=== PATIENT | female | born 1935 | race Caucasian/White ===

== ENCOUNTER 2023-04-21 15:26 | Outpatient (RCR) | payer OTHER, SELFPAY | END 2023-04-21 23:59 | disposition home or self-care (01) | LOC: RPT 15:26 | PROVIDERS: ATTENDING PHYSICIAN Nurse Practitioner; FAMILY PHYSICIAN Family Medicine | DX: N39.3 Stress incontinence (female) (male) (principal); N39.41 Urge incontinence; R26.2 Difficulty in walking, not elsewhere classified; M25.552 Pain in left hip; M54.50 Low back pain, unspecified | CPT/HCPCS: 97110; 97112; 97140; 97163; 97530 ==

== ENCOUNTER 2023-05-19 14:52 | Outpatient (RCR) | payer OTHER, SELFPAY | END 2023-05-19 23:59 | disposition home or self-care (01) | LOC: RPT 14:52 | PROVIDERS: ATTENDING PHYSICIAN Nurse Practitioner; FAMILY PHYSICIAN Family Medicine | DX: N39.41 Urge incontinence (principal); N39.3 Stress incontinence (female) (male); R26.2 Difficulty in walking, not elsewhere classified; M25.552 Pain in left hip; M54.50 Low back pain, unspecified; Z73.6 Limitation of activities due to disability | CPT/HCPCS: 97112; 97140; 97530 ==

== ENCOUNTER 2023-06-16 15:10 | Outpatient (RCR) | payer OTHER, SELFPAY | END 2023-06-16 23:59 | disposition home or self-care (01) | LOC: RPT 15:10 | PROVIDERS: ATTENDING PHYSICIAN Nurse Practitioner; FAMILY PHYSICIAN Family Medicine | DX: N39.46 Mixed incontinence (principal); R26.2 Difficulty in walking, not elsewhere classified; M25.552 Pain in left hip; M54.50 Low back pain, unspecified | CPT/HCPCS: 97014; 97112; 97140; 97530 ==

== ENCOUNTER 2023-07-21 14:57 | Outpatient (RCR) | payer OTHER, SELFPAY | END 2023-07-21 23:59 | disposition home or self-care (01) | LOC: RPT 14:57 | PROVIDERS: ATTENDING PHYSICIAN Nurse Practitioner; FAMILY PHYSICIAN Family Medicine | DX: N39.46 Mixed incontinence (principal); R26.2 Difficulty in walking, not elsewhere classified; M25.552 Pain in left hip; M54.50 Low back pain, unspecified; Z73.6 Limitation of activities due to disability | CPT/HCPCS: 97014; 97110; 97140; 97530 ==

== ENCOUNTER 2023-08-11 15:06 | Outpatient (RCR) | payer OTHER, SELFPAY | END 2023-08-19 08:28 | disposition home or self-care (01) | LOC: RPT 15:06 | PROVIDERS: ATTENDING PHYSICIAN Nurse Practitioner; FAMILY PHYSICIAN Family Medicine | DX: N39.46 Mixed incontinence (principal); R26.2 Difficulty in walking, not elsewhere classified; M25.552 Pain in left hip; M54.50 Low back pain, unspecified | CPT/HCPCS: 97110; 97112; 97140; 97530 ==

== ENCOUNTER → 2023-09-10 17:04 | Outpatient (REF) | payer OTHER, SELFPAY | LOC: HWRAD 17:04 | PROVIDERS: ATTENDING PHYSICIAN Family Medicine | DX: R05.3 Chronic cough (principal) | CPT/HCPCS: 71046 ==

== ENCOUNTER → 2023-10-02 14:52 | Outpatient (REF) | payer OTHER, SELFPAY | LOC: HWRAD 14:52 | PROVIDERS: ATTENDING PHYSICIAN Family Medicine | DX: E04.9 Nontoxic goiter, unspecified (principal) | CPT/HCPCS: 76536 ==

== ENCOUNTER → 2023-10-13 09:55 | Outpatient (REF) | payer OTHER, SELFPAY | LOC: RAD 09:55 | PROVIDERS: ATTENDING PHYSICIAN Family Medicine | DX: R13.10 Dysphagia, unspecified (principal) | CPT/HCPCS: 74230; 92611 ==

== ENCOUNTER 2023-11-28 06:11 | Day surgery (SDC) | payer OTHER, SELFPAY ==
[2023-11-28 08:12] VITALS: BMI 39.8
[2023-11-28 08:21] VITALS: BP 154/76
[2023-11-28 08:45] VITALS: BMI 39.8
[2023-11-28 09:48] VITALS: BP 130/69
[2023-11-28 10:00] VITALS: BP 129/65
[2023-11-28 10:15] VITALS: BP 143/66
== END 2023-11-28 10:35 | disposition home or self-care (01) ==
LOC: SDS 06:11
PROVIDERS: ATTENDING PHYSICIAN Internal Medicine
DX: K22.2 Esophageal obstruction (principal); K22.4 Dyskinesia of esophagus; K44.9 Diaphragmatic hernia without obstruction or gangrene; R13.10 Dysphagia, unspecified
CPT/HCPCS: 43249

== ENCOUNTER → 2024-04-19 15:58 | Outpatient (REF) | payer OTHER, SELFPAY | LOC: HWRCS 15:58 | PROVIDERS: ATTENDING PHYSICIAN Internal Medicine Cardiovascular Disease; FAMILY PHYSICIAN Family Medicine | DX: R06.00 Dyspnea, unspecified (principal) | CPT/HCPCS: 93306 ==

== ENCOUNTER → 2024-04-21 08:13 | Outpatient (REF) | payer OTHER, SELFPAY | LOC: HWRCS 08:13 | PROVIDERS: ATTENDING PHYSICIAN Internal Medicine Cardiovascular Disease; FAMILY PHYSICIAN Family Medicine | DX: R06.00 Dyspnea, unspecified (principal) | CPT/HCPCS: 78452; 93017; A9500; J2785 ==

== ENCOUNTER 2024-05-03 08:29 | Day surgery (SDC) | payer OTHER, SELFPAY ==
[2024-04-14 14:30] VITALS: BMI 36.0
[2024-04-14 15:05] LABS: Hematocrit 40.2 % (37.0-47.0); Mean Corp Hgb Conc. 32.3 g/dL (33.0-37.0); Mean Corpuscular Hgb 30.3 pg (27.0-31.0); Mean Corpuscular Volume 93.7 fL (81.0-99.0); Mean Platelet Volume 11.1 fL (7.4-10.4); Platelet Count 243 10^3/uL (130-400); Red Blood Cell Count 4.29 10^6/uL (4.20-5.40); Red Cell Dist. Width 13.4 % (11.5-14.5); White Blood Cell Count 10.8 10^3/uL (4.8-10.8)
[2024-04-14 15:38] LABS: ALT (SGPT) 21 U/L (0-35); AST (SGOT) 24 U/L (14-36); Albumin 4.1 g/dl (3.5-5.0); Alkaline Phosphatase 111 U/L (38-126); Blood Urea Nitrogen 27 mg/dl (7-17); Calcium 10.5 mg/dl (8.4-10.2); Carbon Dioxide 26 mmol/L (22-30); Chloride 101 mmol/L (98-107); Estimated Creatinine Clearance 35 ml/min; Glucose 86 mg/dl (70-99); Potassium 4.5 mmol/L (3.5-5.1); Sodium 138 mmol/L (135-145); Total Bilirubin 0.4 mg/dl (0.2-1.3); eGFR 43.54
[2024-04-15 08:32] LABS: Glycohemoglobin (HgbA1c) 6.1 % (4.0-5.6)
[2024-04-22 13:33] VITALS: BMI 36.0
--- NOTE | 2024-04-26 13:29 | VNURNOTE ---
Patient is scheduled for an elective L TOBY on 05/03/24. Spoke with patient prior to surgery. Introduced role of [facility] liaison.
PCP is Dr. WILSON.
Discussed orthopedic program and post surgical plans.
Reviewed that she will have VN services initially and will then start outpatient PT at [facility] 05/05/24.
Patient is in agreement with plan and states that her daughter will drive her home at discharge.
Plan: [facility] to see patient when she returns home. Referral placed in [facility].
--- NOTE | 2024-04-29 10:27 | VNURNOTE ---
[facility] liaison rec'ed update. Patient to stay overnight and then start outpt PT on 05/05. No [facility] need. [facility] Liaison called patient, reviewed plan. She is in agreement and verbalized understanding. Her daughter will stay with her at home x 1 week.
[2024-05-03] VITALS (15 sets, daily range): BP systolic 116–166; BP diastolic 55–102; PULSE 80; O2SAT 96
[2024-05-03] MEDS: TYLENOL 650 MG PO ×3 (08:58→19:44)
[2024-05-03] MEDS: CELEBREX 200 MG PO (08:58)
[2024-05-03] MEDS: NORMOSOL-R/PLASMALYTE-A 1000 IV (08:59)
[2024-05-03] MEDS: SUBLIMAZE 50 MCG IV (13:21)
[2024-05-03] MEDS: NSS 1000 IV (14:07)
[2024-05-03] MEDS: TYLENOL PO (14:25)
--- NOTE | 2024-05-03 14:25 | PTCARENOTE ---
Telephone report received from SALESPERSON RECREATIONAL VEHICLESMICHELLE Sy; @14:25 patient arrived in bed on 2L O2; VSS; admission history obtained at bedside.
--- NOTE | 2024-05-03 15:00 | W.PN.UPDATE ---
Update Note
Progress Note Update
L hip OA s/p L TOBY w/ Dr Malone 05/03/23
DVT prophylaxis - ASA, b/l venous foot pumps
HTN - + parameters - monitor BP
CKD stage 3 - minimize nephrotoxins
GERD - continue PPI
DDD, lumbar radiculopathy - add Gabapentin HS
Ambulatory dysfunction with balance and gait disturbance - on fall precautions
Mild valvular disease
UTI with urosepsis secondary to ureteral calculi 05/2022
Prediabetes, A1c 6.1
Obesity, BMI 36.0
[2024-05-03] MEDS: LASIX 40 MG PO (15:42)
[2024-05-03] MEDS: ALDACTONE 25 MG PO (15:44)
[2024-05-03] MEDS: PROTONIX 20 MG PO (15:44)
[2024-05-03] MEDS: FLORASTOR 250 MG PO (15:49)
[2024-05-03] MEDS: REFRESH EYE DROPS (PF) 1 DROPS BOTH EYES ×2 (17:47→21:33)
[2024-05-03] MEDS: ASPIRIN 325 MG PO (17:47)
[2024-05-03] MEDS: ANCEF 5 IV (17:47)
[2024-05-03] MEDS: SENOKOT PO (19:44)
[2024-05-03] MEDS: BACTROBAN 2% OINTMENT 1 APPLIC NASAL (19:44)
[2024-05-03] MEDS: COLACE PO (19:44)
[2024-05-03] MEDS: COREG 6.25 MG PO (19:45)
[2024-05-03] MEDS: DECADRON 4 MG PO (19:45)
[2024-05-03] MEDS: NEURONTIN 300 MG PO (21:32)
[2024-05-03] MEDS: MAG-TAB SR 84 MG PO (21:32)
[2024-05-03] MEDS: MELATONIN 3 MG PO (21:33)
[2024-05-04] MEDS: TYLENOL PO ×2 (00:51→05:00)
[2024-05-04] MEDS: ANCEF 5 IV (02:10)
[2024-05-04 03:00] VITALS: BP 130/64
[2024-05-04 07:35] VITALS: BP 129/66
[2024-05-04] MEDS: BACTROBAN 2% OINTMENT 1 APPLIC NASAL (08:01)
[2024-05-04] MEDS: TYLENOL 650 MG PO (08:09)
[2024-05-04] MEDS: COLACE 100 MG PO (08:09)
[2024-05-04] MEDS: SENOKOT 17.2 MG PO (08:09)
[2024-05-04] MEDS: ALDACTONE PO (08:09)
[2024-05-04] MEDS: DECADRON 4 MG PO (08:10)
[2024-05-04] MEDS: LASIX PO (08:10)
[2024-05-04] MEDS: ASPIRIN 325 MG PO (08:10)
[2024-05-04] MEDS: PROTONIX 20 MG PO (08:10)
[2024-05-04] MEDS: FLORASTOR 250 MG PO (08:10)
[2024-05-04] MEDS: REFRESH EYE DROPS (PF) 1 DROPS BOTH EYES (08:10)
[2024-05-04] MEDS: COREG 6.25 MG PO (08:10)
[2024-05-04] MEDS: ULTRAM 50 MG PO (08:13)
--- NOTE | 2024-05-04 09:13 | W.PN.ORTHO ---
Today's Communication / Plan
-
Await PT and OT recs.
D/c later today if remaining clinically stable.
Assessment
.
Distal Motor Intact: Yes
Dressing:
Scant old incisional drainage. Dressing otherwise C/D/I.
Assessment:
L hip OA s/p Rafia LUIS w/ Dr Malone 05/03/24
DVT prophylaxis - ASA, b/l venous foot pumps
HTN - + parameters - BP stable
CKD stage 3 - minimize nephrotoxins
GERD - continue PPI
DDD, lumbar radiculopathy - added Gabapentin HS
Ambulatory dysfunction with balance and gait disturbance - on fall precautions
Mild valvular disease
UTI with urosepsis secondary to ureteral calculi 05/2022
Prediabetes, A1c 6.1
Obesity, BMI 36.0
Plan
.
Surgery / Date: Rafia LUIS w/ Dr Malone 05/03/23
DVT Prophylaxis: Aspirin
Activity:
Out of bed.
PT/OT
Discharge Plan: Home w/ Outpatient PT
Subjective
.
.:
Patient resting comfortably in bed.
L hip pain fairly well controlled w/ current pain meds.
Denies any new significant complaints.
Eager for potential d/c today.
Vital Signs and Labs
.
Vital Signs and Labs:
Lab Results
04/14/24 13:16
04/14/24 13:16
Temp Pulse Resp BP Pulse Ox
97.9 F 78 18 129/66 95
05/04/24 07:35 05/04/24 08:10 05/04/24 07:35 05/04/24 08:10 05/04/24 08:00
Non-invasive Hgb result: 13.2
Physical Exam
-
HEENT: No pallor, cyanosis, or jaundice. Throat clear.
NECK: Supple. No JVD.
RESPIRATORY: Lungs clear to auscultation.
CVS: S1, S2 normal. RRR.
ABDOMEN: Soft, non-tender. No distension. Obese.
EXTREMITIES: Strength equal, no calf pain with palpation/dorsiflexion. Calves soft.
FILE CLERK DATA ENTRY: AOx3. No focal deficits. air commodore grossly intact
--- NOTE | 2024-05-04 09:25 | W.DS.TRANS ---
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
-
Discharge Instructions:
Sleep Apnea Risk Intermediate
Discharge Diagnosis/Procedures L hip OA s/p L TOBY w/ Dr Malone 05/03/24
Diet Regular
Activity As tolerated,With Walker
Driving Restrictions Not until seen by your Dr
Bathing Restrictions OK to Shower
Other Services PT
Wound Care Dressing to be removed 1 week post-surgery.
Prabhu to be removed at 2 week follow-up with
surgeon's office.
Instructions:
Stand-Alone Forms: Total Hip/Knee Replacement D/C
Changes to Home Medications: Yes
Discharge Medications:
DC Medications w/original date entered in [facility]
dextran 70-hypromellose eye drops in a dropperette (Artificial Tears (PF) drops in a dropperette) 1 drp BOTH EYES QID Eye Condition 06/12/19
carvedilol 6.25 mg tablet 6.25 mg PO BID Blood pressure 04/22/22
estradiol 0.01% (0.1 mg/gram) vaginal cream 1 g vaginal TUSA Infection 04/22/22
magnesium 250 mg tablet 250 mg PO QPM Electrolyte Repletion 04/22/22
pantoprazole 20 mg tablet,delayed release 20 mg PO DAILY Gastrointestinal issue 04/22/22
therapeutic multivitamin 1 tab PO QPM Supplement 04/22/22
Nuvision 2 cap PO DAILY Supplement 08/02/22
Probiotic 1 cap PO DAILY Supplement 08/02/22
vibegron 75 mg tablet (Gemtesa) 75 mg PO DAILY Urinary Issue 08/02/22
cranberry extract 200 mg capsule (Ellura) 200 mg PO DAILY 04/12/24
dexamethasone 4 mg tablet 4 mg PO BID inflammation #6 tabs 04/14/24
gabapentin 300 mg capsule 300 mg PO HS sleep/pain #10 caps 04/14/24
mupirocin 2 % topical ointment 1 applic topical BID infection prevention #1 tube 04/14/24
tramadol 50 mg tablet 50 mg PO Q6H PRN 1 tab moderate pain, 2 if severe #30 tabs 01/22/25
melatonin 2.5 mg PO HS PRN sleep 05/03/24
acetaminophen 650 mg tablet,extended release 1,300 mg (2 x 650 mg) PO Q8H pain #60 tabs 05/04/24
aspirin 325 mg tablet 325 mg PO DAILY #30 tabs 05/04/24
docusate sodium 100 mg capsule 100 mg PO BID #30 caps 05/04/24
furosemide 40 mg tablet 40 mg PO DAILY Fluid retention/Swelling #1 tab 05/04/24
ondansetron HCl 4 mg tablet 4 mg PO Q6H PRN nausea and vomiting #30 tabs 05/04/24
polyethylene glycol 3350 17 gram oral powder packet 17 g PO HS #14 ea 05/04/24
sennosides 8.6 mg tablet (Jayla-megan) 17.2 mg (2 x 8.6 mg) PO BID #30 tabs 05/04/24
spironolactone 25 mg tablet 25 mg PO DAILY Blood pressure #0 tabs 05/04/24
Home Medication Changes
dexamethasone 4 mg tablet 4 mg PO BID inflammation #6 tabs 04/14/24
gabapentin 300 mg capsule 300 mg PO HS sleep/pain #10 caps 04/14/24
tramadol 50 mg tablet 50 mg PO Q6H PRN 1 tab moderate pain, 2 if severe #30 tabs 04/14/24
acetaminophen 650 mg tablet,extended release 1,300 mg (2 x 650 mg) PO Q8H pain #60 tabs 05/04/24
aspirin 325 mg tablet 325 mg PO DAILY #30 tabs 05/04/24
docusate sodium 100 mg capsule 100 mg PO BID #30 caps 05/04/24
ondansetron HCl 4 mg tablet 4 mg PO Q6H PRN nausea and vomiting #30 tabs 05/04/24
polyethylene glycol 3350 17 gram oral powder packet 17 g PO HS #14 ea 05/04/24
sennosides 8.6 mg tablet (Jayla-megan) 17.2 mg (2 x 8.6 mg) PO BID #30 tabs 05/04/24
Pending Results: No
[2024-05-04 10:59] VITALS: BP 121/57; PULSE 67; O2SAT 95
[2024-05-04 11:10] VITALS: BP 136/67; PULSE 79; O2SAT 95
[2024-05-04 11:33] VITALS: BP 132/63
--- NOTE | 2024-05-04 11:39 | CM ---
Met with pt at bedside
Pt reports she lives alone in an apartment with elevator access; FF set-up. Daughter to stay with pt x's 1 week
Independent at baseline, used single point cane or rollator for ambulation
DME - commode, shower chair, tub grab bar, single point cane, rollator
SNF - denies past hx
HH - in past - unable to recall agency
Has ride home with daughter
PCP - Keke Aguilar
Pharm - [facility] [address]
Has outpatient PT appt scheduled for tomorrow with [facility]. Has Rx. Has transportation
Plan - home with outpatient PT
== END 2024-05-04 12:59 | disposition home or self-care (01) ==
LOC: SDS 08:29
PROVIDERS: ATTENDING PHYSICIAN Specialist; FAMILY PHYSICIAN Family Medicine; REFERRING PHYSICIAN Internal Medicine Cardiovascular Disease
DX: M16.12 Unilateral primary osteoarthritis, left hip (principal); E66.9 Obesity, unspecified; I12.9 Hypertensive chronic kidney disease with stage 1 through stage 4 chronic kidney disease, or unspecified chronic kidney disease; M51.16 Intervertebral disc disorders with radiculopathy, lumbar region; K21.9 Gastro-esophageal reflux disease without esophagitis; N18.30 Chronic kidney disease, stage 3 unspecified; R73.03 Prediabetes; Z68.36 Body mass index [BMI] 36.0-36.9, adult; Z87.440 Personal history of urinary (tract) infections; Z87.442 Personal history of urinary calculi; Z79.82 Long term (current) use of aspirin; Z79.899 Other long term (current) drug therapy; Z88.1 Allergy status to other antibiotic agents; Z88.5 Allergy status to narcotic agent; Z60.2 Problems related to living alone; Z96.612 Presence of left artificial shoulder joint; Z96.653 Presence of artificial knee joint, bilateral
CPT/HCPCS: 27130; 73501; 36415; 73502; 80053; 83036; 85027; 87070; 97110; 97162; 97166; 97530; 97535; C1713; C1776

== ENCOUNTER → 2024-09-21 16:27 | Outpatient (REF) | payer OTHER, SELFPAY | LOC: RAD 16:27 | PROVIDERS: ATTENDING PHYSICIAN Family Medicine | DX: E04.9 Nontoxic goiter, unspecified (principal) | CPT/HCPCS: 76536 ==

== ENCOUNTER → 2024-11-17 10:32 | Outpatient (REF) | payer OTHER, SELFPAY ==
[2024-11-17 10:54] VITALS: BP 129/71; BP_SYST 79
== END ==
LOC: RADI 10:32
PROVIDERS: ATTENDING PHYSICIAN Family Medicine
DX: E04.1 Nontoxic single thyroid nodule (principal)
CPT/HCPCS: 10005; 88173